=== PATIENT | male | born 1990 | race Caucasian/White ===

== ENCOUNTER 2024-03-18 04:10 | Inpatient (IN) | payer OTHER ==
[2024-03-18 04:37] VITALS: BMI 22.1
[2024-03-18] MEDS ORDERED: BISMUTH SUBSALICYLATE 524 MG/30 ML PO PRN (05:12)
[2024-03-18] MEDS ORDERED: NALOXONE HCL 0.4 MG/ML VIAL IM PRN (05:12)
[2024-03-18] MEDS ORDERED: NALOXONE (NARCAN) HCL 4 MG/0.1 ML SPRAY NS PRN (05:12)
[2024-03-18] MEDS ORDERED: DICYCLOMINE HCL 10 MG CAPSULE PO PRN (05:12)
[2024-03-18] MEDS ORDERED: MAG HYDROX/AL HYDROX/SIMETH 30 ML UNIT-DOSE CUP PO PRN (05:12)
[2024-03-18] MEDS ORDERED: hydrOXYzine PAMOATE 25 MG CAPSULE (FP) PO PRN (05:12)
[2024-03-18] MEDS ORDERED: IBUPROFEN 400 MG TABLET (FP) PO PRN (05:12)
[2024-03-18] MEDS ORDERED: BENZONATATE 200 MG CAPSULE PO PRN (05:12)
[2024-03-18] MEDS ORDERED: guaiFENesin 600 MG TABLET.ER (FP) PO PRN (05:12)
[2024-03-18] MEDS ORDERED: ACETAMINOPHEN 325 MG TABLET (FP) PO PRN (05:12)
[2024-03-18] MEDS ORDERED: MAGNESIUM HYDROX 2400MG/30ML ORAL SUSPENSION 30 ML CUP PO PRN (05:12)
[2024-03-18] MEDS ORDERED: POLYETHYLENE GLYCOL (HEALTHYLAX) 3350 17 GM PACKET PO PRN (05:12)
[2024-03-18] MEDS ORDERED: LOPERAMIDE HCL 2 MG CAPSULE PO PRN (05:12)
[2024-03-18] MEDS ORDERED: BENZOCAINE/MENTHOL (CHLORASEPTIC ) LOZENGE MM PRN (05:12)
[2024-03-18] MEDS: PRENATAL VITAMINS W/ FOLIC ACID TABLET (FP) PO SCH (10:40)
[2024-03-18] MEDS: NICOTINE 21 MG/24 HOURS TOPICAL PATCH TD SCH (10:40)
[2024-03-18] MEDS: methaDONE HCL 10 MG TABLET PO ONE (11:55)
[2024-03-18] MEDS: diazePAM 5 MG TABLET PO SCH (11:55)
[2024-03-18] MEDS ORDERED: methaDONE HCL 10 MG TABLET PO PRN (13:02)
[2024-03-18] MEDS: cloNIDine HCL 0.1 MG TABLET PO SCH (13:43)
[2024-03-18] MEDS: NICOTINE POLACRILEX 4 MG GUM BUC PRN (13:48)
[2024-03-18] MEDS: MELATONIN 5 MG TABLETS PO SCH (22:44)
[2024-03-18] MEDS: METHOCARBAMOL 500 MG TABLET PO PRN (22:44)
[2024-03-18] MEDS: THIAMINE 100 MG TABLET PO SCH (22:46)
[2024-03-19] MEDS: diazePAM 5 MG TABLET PO PRN (02:27)
[2024-03-19] MEDS: methaDONE 40 MG, methaDONE 10 MG PO ONE (10:00)
[2024-03-19] MEDS: IBUPROFEN 600 MG TABLET (FP) PO PRN (12:34)
[2024-03-19] MEDS: ONDANSETRON *ODT* 4 MG TABLET SL PRN (12:35)
[2024-03-19] MEDS: hydrOXYzine PAMOATE 25 MG CAPSULE (FP) PO PRN (14:27)
[2024-03-19] MEDS: CLOTRIMAZOLE 1% CREAM TP ONE (15:43)
[2024-03-19] MEDS: METHOCARBAMOL 500 MG TABLET PO PRN (17:09)
[2024-03-19] MEDS: traZODone HCL 50 MG TABLET (FP) PO ONE (21:05)
[2024-03-19] MEDS: CLOTRIMAZOLE 1% CREAM TP SCH (22:18)
[2024-03-20] MEDS: diazePAM 5 MG TABLET PO SCH (05:38)
[2024-03-20] MEDS: methaDONE 40 MG, methaDONE 20 MG PO ONE (09:44)
[2024-03-20] MEDS: QUEtiapine FUMARATE 50 MG TABLET PO ONE (11:58)
[2024-03-20] MEDS: QUEtiapine FUMARATE 100 MG TABLET (FP) PO SCH (12:01)
[2024-03-20] MEDS: cloNIDine HCL 0.1 MG TABLET PO PRN (17:05)
[2024-03-20] MEDS: DIVALPROEX SODIUM 500 MG TABLET E.C. PO ONE (21:40)
[2024-03-20] MEDS: traZODone HCL 50 MG TABLET (FP) PO ONE (21:40)
[2024-03-21] MEDS: diazePAM 5 MG TABLET PO SCH (05:36)
[2024-03-21] MEDS: BACITRACIN 0.9 GM PACKET TP ONE (09:14)
[2024-03-21] MEDS: methaDONE 40 MG, methaDONE 30 MG PO ONE (09:14)
[2024-03-21] MEDS: QUEtiapine FUMARATE 50 MG TABLET PO ONE (13:19)
[2024-03-21] MEDS: QUEtiapine FUMARATE 100 MG TABLET (FP) PO SCH (21:17)
[2024-03-21] MEDS: DIVALPROEX SODIUM 500 MG TABLET E.C. PO SCH (21:17)
[2024-03-21] MEDS: traZODone HCL 50 MG TABLET (FP) PO SCH (21:17)
[2024-03-21] MEDS ORDERED: QUEtiapine FUMARATE 200 MG TABLET PO SCH (22:00)
[2024-03-22] MEDS: diazePAM 5 MG TABLET PO ONE (05:32)
[2024-03-22] MEDS: methaDONE HCL 40 MG DISPERSABLE TABLET PO ONE (09:58)
[2024-03-22] MEDS: clonazePAM 0.5 MG ODT TABLETS SL SCH (14:23)
[2024-03-22 15:14] LABS: PH,URINE 7.5 (5.0-8.0); URINE APPEARANCE CLEAR; URINE BILIRUBIN NEGATIVE (NEGATIVE); URINE COLOR YELLOW; URINE GLUCOSE (UA) NEGATIVE (NEGATIVE); URINE KETONE NEGATIVE (NEGATIVE); URINE LEUK ESTERASE NEGATIVE (NEGATIVE); URINE NITRITE NEGATIVE (NEGATIVE); URINE PROTEIN NEGATIVE (NEGATIVE); URINE UROBILINOGEN 0.2 mg/dL (0.2-1.0)
[2024-03-22] MEDS: QUEtiapine FUMARATE 200 MG TABLET PO SCH (21:55)
[2024-03-23] MEDS: methaDONE 80 MG, methaDONE 10 MG PO ONE (09:04)
[2024-03-23 09:53] VITALS: BP 119/60; PULSE 76; RESP 16; TEMP 98.9
== END 2024-03-23 09:51 | disposition home or self-care (01) | DRG 773 ==
LOC: YASAS 04:10 → Y3N 05:58
PROVIDERS: ADMIT Allergy & Immunology; ATTEND Surgery
PROC: HZ2ZZZZ Detoxification Services for Substance Abuse Treatment (ICD-10-PCS; principal; 2024-03-18)
DX: F11.23 Opioid dependence with withdrawal (principal); F10.230 Alcohol dependence with withdrawal, uncomplicated; F14.20 Cocaine dependence, uncomplicated; F13.20 Sedative, hypnotic or anxiolytic dependence, uncomplicated; F17.210 Nicotine dependence, cigarettes, uncomplicated; F31.9 Bipolar disorder, unspecified; F19.24 Other psychoactive substance dependence with psychoactive substance-induced mood disorder; G47.00 Insomnia, unspecified; Z59.00 Homelessness unspecified
CPT/HCPCS: 80305; 81003; 93005; 93010; Q0162

== ENCOUNTER 2024-04-30 17:22 | Inpatient (IN) | payer OTHER ==
[2024-04-30 18:05] VITALS: BMI 25.8
[2024-04-30] MEDS ORDERED: LOPERAMIDE HCL 2 MG CAPSULE PO PRN (19:27)
[2024-04-30] MEDS ORDERED: MAGNESIUM HYDROX 2400MG/30ML ORAL SUSPENSION 30 ML CUP PO PRN (19:27)
[2024-04-30] MEDS ORDERED: NALOXONE (NARCAN) HCL 4 MG/0.1 ML SPRAY NS PRN (19:27)
[2024-04-30] MEDS ORDERED: NALOXONE (NYS OPIOID OVERDOSE PROGRAM) 4 MG/0.1 ML SPRAY NS PRN (19:27)
[2024-04-30] MEDS ORDERED: P-EPHED 60MG/TRIPROLIDI 2.5MG TABLET PO PRN (19:27)
[2024-04-30] MEDS ORDERED: IBUPROFEN 400 MG TABLET (FP) PO PRN (19:27)
[2024-04-30] MEDS ORDERED: POLYETHYLENE GLYCOL (HEALTHYLAX) 3350 17 GM PACKET PO PRN (19:27)
[2024-04-30] MEDS ORDERED: BENZONATATE 200 MG CAPSULE PO PRN (19:27)
[2024-04-30] MEDS ORDERED: ONDANSETRON *ODT* 4 MG TABLET SL PRN (19:27)
[2024-04-30] MEDS ORDERED: DICYCLOMINE HCL 10 MG CAPSULE PO PRN (19:27)
[2024-04-30] MEDS ORDERED: MAG HYDROX/AL HYDROX/SIMETH 30 ML UNIT-DOSE CUP PO PRN (19:27)
[2024-04-30] MEDS ORDERED: BISMUTH SUBSALICYLATE 524 MG/30 ML PO PRN (19:27)
[2024-04-30] MEDS ORDERED: ACETAMINOPHEN 325 MG TABLET (FP) PO PRN (19:27)
[2024-04-30] MEDS ORDERED: guaiFENesin 600 MG TABLET.ER (FP) PO PRN (19:27)
[2024-04-30] MEDS ORDERED: clonazePAM 0.5 MG ODT TABLETS SL ONE (19:39)
[2024-04-30] MEDS ORDERED: methaDONE HCL 10 MG TABLET (FOR DETOX USE ONLY) ONE (19:40)
[2024-04-30] MEDS: methaDONE HCL 10 MG TABLET (FOR DETOX USE ONLY) PO ONE (19:45)
[2024-04-30] MEDS: clonazePAM 0.5 MG ODT TABLETS SL PRN (19:46)
[2024-04-30] MEDS: MELATONIN 5 MG TABLETS PO SCH (21:13)
[2024-04-30] MEDS: METHOCARBAMOL 500 MG TABLET PO PRN (21:13)
[2024-04-30] MEDS: THIAMINE 100 MG TABLET PO SCH (21:13)
[2024-05-01] MEDS: PRENATAL VITAMINS W/ FOLIC ACID TABLET (FP) PO SCH (10:05)
[2024-05-01] MEDS: NICOTINE POLACRILEX 2 MG GUM BUC PRN (10:07)
[2024-05-01] MEDS: NICOTINE 21 MG/24 HOURS TOPICAL PATCH TD SCH (10:07)
[2024-05-01] MEDS: QUEtiapine FUMARATE 200 MG TABLET PO SCH (12:27)
[2024-05-01] MEDS: DIVALPROEX SODIUM 500 MG TABLET E.C. PO SCH (12:27)
[2024-05-01] MEDS: traZODone HCL 50 MG TABLET (FP) PO SCH (21:31)
[2024-05-01] MEDS: BENZOCAINE/MENTHOL (CHLORASEPTIC ) LOZENGE MM PRN (23:08)
[2024-05-02] MEDS: hydrOXYzine PAMOATE 25 MG CAPSULE (FP) PO PRN (06:04)
[2024-05-02] MEDS: methaDONE HCL 10 MG TABLET (FOR DETOX USE ONLY) PO ONE ×2 (09:35→10:41)
[2024-05-02] MEDS: diphenhydrAMINE HCL 25 MG CAPSULE (FP) PO ONE (10:56)
[2024-05-02 12:41] VITALS: TEMP 97.7
[2024-05-02] MEDS: IBUPROFEN 600 MG TABLET (FP) PO PRN (13:30)
[2024-05-02] MEDS: cloNIDine HCL 0.1 MG TABLET PO SCH (13:49)
[2024-05-02 16:44] VITALS: BP 113/72; PULSE 98; RESP 18
[2024-05-02] MEDS ORDERED: QUEtiapine FUMARATE 300 MG TABLET PO SCH (22:00)
[2024-05-03] MEDS ORDERED: methaDONE HCL 40 MG DISPERSABLE TABLET PO SCH (06:00)
[2024-05-03] MEDS ORDERED: methaDONE HCL 10 MG TABLET PO ONE (10:33)
[2024-05-04] MEDS ORDERED: cloNIDine HCL 0.1 MG TABLET PO PRN
[2024-05-04] MEDS ORDERED: methaDONE HCL 10 MG TABLET (FOR DETOX USE ONLY) PO ONE (10:00)
[2024-05-04] MEDS ORDERED: methaDONE HCL 10 MG TABLET PO ONE (10:00)
[2024-05-05] MEDS ORDERED: methaDONE HCL 10 MG TABLET PO ONE (10:00)
[2024-05-06] MEDS ORDERED: methaDONE HCL 40 MG DISPERSABLE TABLET PO ONE (10:00)
[2024-05-07] MEDS ORDERED: methaDONE 40 MG, methaDONE 10 MG PO ONE (10:00)
[2024-05-08] MEDS ORDERED: methaDONE HCL 40 MG DISPERSABLE TABLET PO ONE (10:00)
[2024-05-08] MEDS ORDERED: methaDONE 40 MG, methaDONE 10 MG PO ONE (10:00)
== END 2024-05-02 19:09 | disposition left against medical advice (07) | DRG 773 ==
LOC: YASAS 17:22 → Y3N 20:31
PROVIDERS: ADMIT Allergy & Immunology; ATTEND Allergy & Immunology
PROC: HZ2ZZZZ Detoxification Services for Substance Abuse Treatment (ICD-10-PCS; principal; 2024-04-30)
DX: F11.23 Opioid dependence with withdrawal (principal); F10.230 Alcohol dependence with withdrawal, uncomplicated; F14.20 Cocaine dependence, uncomplicated; F13.20 Sedative, hypnotic or anxiolytic dependence, uncomplicated; F17.210 Nicotine dependence, cigarettes, uncomplicated; F31.9 Bipolar disorder, unspecified; F41.0 Panic disorder [episodic paroxysmal anxiety]; F41.9 Anxiety disorder, unspecified; F43.10 Post-traumatic stress disorder, unspecified; F91.8 Other conduct disorders; Z91.199 Patient's noncompliance with other medical treatment and regimen due to unspecified reason
CPT/HCPCS: 80305; 80307